=== PATIENT | female | born 1990 | race Two or more races ===

== ENCOUNTER 2023-07-04 08:15 | Emergency (ER) | payer MEDICAID ==
[~2023-07-04] VITALS: Ht 149.9 cm; Wt 79.0 kg
[2023-07-04 08:54] VITALS: BP 100/67; PULSE 77; RESP 16; TEMP 97.8; O2SAT 97
[2023-07-04 09:01] LABS: Urine Bacteria NONE SEEN /hpf (None Seen); Urine Blood Negative /uL (Negative); Urine Clarity Clear (Clear); Urine Color Colorless (Yellow); Urine Protein, UAD Negative (Negative); Urine Specific Gravity 1.014 (1.001-1.035); Urine Urobilinogen Normal (Negative); Urine WBC 1 /hpf (0 - 5); Urine pH 7.5 (5.0-8.0)
[2023-07-04 09:24] LABS: Basophils # (auto) 0 10 ^3/uL (0-0.2); Basophils % (auto) 0.6 % (0.0-2.0); Eosinophils # (auto) 0.6 10 ^3/uL (0-0.8); Eosinophils % (auto) 8.3 % (0.0-7.0); Hematocrit 41.7 % (36.0-46.0); Hemoglobin 13.9 g/dL (12.2-16.2); Lymphocytes % (auto) 39.8 % (10.0-50.0); Mean Corpuscular Hemoglobin 27.7 pg (28.0-32.0); Mean Corpuscular Hgb Conc. 33.4 g/dL (32.0-36.0); Mean Corpuscular Volume 82.9 fL (80.0-100.0); Monocytes # (auto) 0.4 10 ^3/uL (0-1.3); Monocytes % (auto) 5.2 % (0.0-12.0); Neutrophils # (auto) 3.5 10 ^3/uL (1.6-8.6); Neutrophils % (auto) 46.1 % (37.0-80.0); Nucleated Red Blood Cells % 0.2 %; Red Blood Cells 5.04 10^6/uL (4.0-5.20); Red Cell Distribution Width 12.9 % (11.8-14.3); White Blood Cell 7.5 10^3/uL (4.4-10.8)
== END 2023-07-04 10:19 | disposition home or self-care (01) ==
LOC: ER 08:15
DX: O20.0 Threatened abortion (principal); Z3A.01 Less than 8 weeks gestation of pregnancy; Z88.6 Allergy status to analgesic agent
CPT/HCPCS: 36415; 76801; 76817; 81001; 84702; 85025

== ENCOUNTER 2023-11-17 08:51 | Emergency (ER) | payer MEDICAID ==
[~2023-11-17] VITALS: Ht 149.9 cm; Wt 78.5 kg
[2023-11-17 10:21] VITALS: BP 129/78; PULSE 88; RESP 16; TEMP 97.4; O2SAT 95
[2023-11-17] MEDS ORDERED: PREN-96 PO (10:38)
== END 2023-11-17 10:44 | disposition home or self-care (01) ==
LOC: ER 08:51
DX: O26.891 Other specified pregnancy related conditions, first trimester (principal); R10.2 Pelvic and perineal pain; Z3A.01 Less than 8 weeks gestation of pregnancy
CPT/HCPCS: 36415; 84702

== ENCOUNTER 2024-08-20 05:22 | Emergency (ER) | payer MEDICAID ==
[~2024-08-20] VITALS: Ht 27.9 cm; Wt 75.8 kg
[~2024-08-20 05:22] MED LIST: PREN-96 PO
[2024-08-20 05:28] VITALS: BP 120/59; PULSE 82; RESP 16; O2SAT 97
--- NOTE | 2024-08-20 05:47 | ED.PDOC ---
Foreign Body HPI Comments 33-year-old female who came to ER for foreign body. Few minutes prior to arrival, patient felt an insect crawled up and inside her right ear. Patient unable to remove the insect hence her coming to the ER. Chief Complaint: Foreign Body Time Seen by MD: 05:45 Primary Care Provider: Out of Area History of Present Illness: Nurses Notes Allergies: Coded Allergies: Aspirin (Verified Allergy, Mild, 07/04/23) Ibuprofen (Verified Allergy, Mild, 07/04/23) Home Meds Active Scripts Vit W/ Ferrous Fumara ( One Daily) Daily Tab, 1 TAB PO DAILY for 90 Days, #90 TAB 0 Refills Prov:KAYLIN HSU Nargis [employer] 11/17/23 Information Source: Patient Mode of Arrival: Ambulatory Timing: Minutes Duration: Since onset Severity: Moderate Location: Right, Ear Context: Accidental Foreign Body: Insect Removal: Was attempted, Was successful Associated signs and symptoms: Pain Past Medical History PAST MEDICAL HISTORY: Denies Surgical History: Denies all surgeries [employer] History: Denies all [employer] Hx Family History Family History: Reviewed,noncontributory to illness Social History Smoker: Non-Smoker Alcohol: Denies ETOH Use Drugs: Denies Drug Use Lives In: Home Constitutional: denies: chills, diaphoresis, fatigue, fever, malaise, sweats, weakness, others EENTM: reports: ear pain (Right); denies: blurred vision, double vision, ear bleeding, ear discharge, ear drainage, ear ringing, eye pain, eye redness, hearing loss, mouth pain, mouth swelling, nasal discharge, nose bleeding, nose congestion, nose pain, photophobia, tearing, throat pain, throat swelling, voice changes, others Respiratory: denies: cough, hemoptysis, orthopnea, SOB at rest, shortness of breath, SOB with excertion, stridor, wheezing, others Cardiovascular: denies: chest pain, dizzy spells, diaphoresis, Dyspnea on exertion, edema, irregular heart beat, left arm pain, lightheadedness, palpitations, PND, syncope, others Gastrointestinal: denies: abdomen distended, abdominal pain, blood streaked bowels, constipated, diarrhea, dysphagia, difficulty swallowing, hematemesis, melena, nausea, poor appetite, poor fluid intake, rectal bleeding, rectal pain, vomiting, others Genitourinary: denies: abnormal vagina bleeding, burning, dyspareunia, dysuria, flank pain, frequency, hematuria, incontinence, pain, , vagina discharge, urgency, others Neurological: denies: dizziness, fainting, headache, left sided numbness, left sided weakness, numbness, paresthesia, pre-existing deficit, right sided numbness, right sided weakness, seizure, speech problems, tingling, tremors, weakness, others Musculoskeletal: denies: back pain, gout, joint pain, joint swelling, muscle pain, muscle stiffness, neck pain, others Integumetry: denies: bruises, change in color, change in hair/nails, dryness, laceration, lesions, lumps, rash, wounds, others Allergic/Immunocompromised: denies: Difficulty Healing, Frequent Infections, Hives, Itching, others Hematologic/Lymphatic: denies: anemia, blood clots, easy bleeding, easy bruising, swollen glands, others Endocrine: denies: excessive hunger, excessive sweating, excessive thirst, excessive urination, flushing, intolerance to cold, intolerance to heat, une xplained weight gain, unexplained weight loss, others Psychiatric: denies: anxiety, bipolar disorder, depression, hopeless, panic disorder, schizophrenia, sleepless, suicidal, others Physical Exam General Appearance: No Apparent Distress, Normal HEENT: Normal ENT Inspection, Pharynx Normal, TMs Normal, Other (Foreign body/insect right ear canal) Neck: Full Range of Motion, Non-Tender, Normal, Normal Inspection Respiratory: Chest Non-Tender, Lungs Clear, No Accessory Muscle Use, No Respiratory Distress, Normal Breath Sounds Cardiovascular: No Edema, No JVD, No Murmur, No Gallop, Normal Peripheral Pulses, Regular Rate/Rhythm Breast Exam: Deferred Gastrointestinal: No Organomegaly, Non Tender, No Pulsatile Mass, Normal Bowel Sounds, Soft Genitalia: Deferred Pelvic: Deferred Rectal: Deferred Extremities: No calf tenderness, Normal capillary refill, Normal inspection, Normal range of motion, Non-tender, No pedal edema Musculoskeletal : Apperance: Normal Neurologic: Alert, doctor of naprapathy II-XII nml as Tested, No Motor Deficits, Normal Affect, Normal Mood, No Sensory Deficits Cerebellar Function: Normal Reflexes: Normal Skin: Dry, Normal Color, Warm Lymphatic: No Adenopathy Was a procedure done? Was a procedure done?: Yes Sedation Sedation?: No Foreign Body Removal Foreign body in: Ear (Right) Anesthetic: Lidocaine Procedure: Identified (Insect), Removed Informed consent obtained: Yes Risks/benefits/alt described: Yes FB Differential Dx Differential Diagnosis: Foreign Body, Perforation X-Ray, Labs, Meds, VS Vital Signs Date Time Temp Pulse Resp B/P (MAP) Pulse Ox O2 Delivery O2 Flow Rate FiO2 08/20/24 05:28 97.9 82 16 120/59 (79) 97 Time of 1ST Reevaluation: 05:42 Reevaluation 1ST: Unchanged Patient Education/Counseling: Diagnosis, Treatment Family Education/Counseling: No Family Present Departure 1 Departure Time of Disposition: 05:47 (Patient had foreign body in the right ear. It was removed. Patient tolerated the procedure well without issue. We will discharge patient home) Impression: Primary Impression: Foreign body in right ear Qualified Codes: T16.1XXA - Foreign body in right ear, initial encounter Disposition: HOME / SELF CARE / HOMELESS Condition: Stable Additional Instructions: Your ear was irrigated and appears clear of debris or foreign material now. You should follow up with an ear nose and throat surgeon. Please call [place] [id number] [facility], [address] [place] [address] [place] Discharged With: Self Critical Care Note Critical Care Time?: No Stability Stability form required: No Heart Score Heart Score: Heart Score Response (Comments) Value History N/A 0 EKG N/A 0 Age N/A 0 Risk Factors N/A 0 Troponin N/A 0 Total 0 I personally scribed for BERNICE RUIZ MD ([email or web address]) on 08/20/24 at 05:47. Electronically submitted by Brody Chopra ([email or web address]). BERNICE RUIZ MD Aug 20, 2024 05:47
== END 2024-08-20 06:30 | disposition home or self-care (01) ==
LOC: ER 05:22
DX: T16.1XXA Foreign body in right ear, initial encounter (principal); Z88.6 Allergy status to analgesic agent; W44.F4XA Insect entering into or through a natural orifice, initial encounter; Y93.89 Activity, other specified; Y92.89 Other specified places as the place of occurrence of the external cause; Y99.8 Other external cause status
CPT/HCPCS: 69200